=== PATIENT | female | born 1990 | race Hispanic/Latino ===

== ENCOUNTER 2021-10-07 10:00 | Inpatient (IN) | payer MEDICAID, OTHER ==
[~2021-10-07] VITALS: Ht 170.2 cm; Wt 62.1 kg
[2021-10-07] MEDS ORDERED: ACETAMINOPHEN 500 MG TABLET ONE (10:39)
[2021-10-07 10:41] LABS: APPEARANCE,URINE Cloudy (CLEAR); BILIRUBIN,URINE Negative (NEGATIVE); COLOR,URINE Orange (YELLOW); GLUCOSE, URINE (UA) Negative (NEGATIVE); HEMATOCRIT 26.1 % (36-48); KETONES,URINE 15 mg/dL (NEGATIVE); LEUKOCYTE ESTERASE ,URINE Small (NEGATIVE); MEAN CORPUSCULAR HEMOGLOBIN 21.4 pg (27.0-33.0); MEAN CORPUSCULAR HGB CONC 31.4 g/dL (32.0-36.0); NITRATE,URINE Negative (NEGATIVE); OCCULT BLOOD,URINE Large (NEGATIVE); PLATELET COUNT (AUTO) 107 K/uL (130-400); PROTEIN,URINE POS 2+ mg/dL (NEGATIVE); RED BLOOD CELL COUNT(AUTO) 3.84 MIL/uL (4.00-5.50); RED CELL DISTRIBUTION WIDTH 15.4 % (11.0-15.5); WHITE BLOOD COUNT (AUTO) 6.4 K/uL (4.8-10.8)
[2021-10-07 10:44] LABS: HCG,QUAL RESULT NEGATIVE (NEGATIVE)
[2021-10-07 10:47] LABS: CREATININE 0.9 mg/dL (0.5-1.5); POTASSIUM 3.7 mmol/L (3.5-5.1)
[2021-10-07 10:52] LABS: ALBUMIN 2.9 g/dL (3.5-5.0); BILIRUBIN,TOTAL 0.3 mg/dL (0.2-1.0); TOTAL PROTEIN, SERUM 7.2 g/dL (6.0-8.3)
[2021-10-07] MEDS ORDERED: 0.9%NACL 1000ML 1,779 ML IV ONE (11:00)
[2021-10-07] MEDS ORDERED: ACETAMINOPHEN 500 MG TABLET PO ONE (11:00)
[2021-10-07 11:15] LABS: CRP QUANTITATIVE 200.5 mg/L (0.00-9.0)
[2021-10-07 11:17] LABS: BACTERIA,URINE Few /HPF (None Seen); RBC,URINE TNTC /HPF (0-1)
[2021-10-07] MEDS ORDERED: ACETAMINOPHEN 325 MG TAB PO PRN (11:30)
[2021-10-07] MEDS ORDERED: LEVOFLOXACIN 750 MG/D5W 150 ML 150 ML IV ONE (11:30)
[2021-10-07 11:52] LABS: BAND NEUTROPHILS % (MANUAL) 14 % (0-2); BASOPHILS % (MANUAL) 2 % (0-2); LYMPHOCYTES % (MANUAL) 21 % (22-44); MAN.DIFF COMMENT-IMPRESSION MANUAL DIFFERENTIAL; MONOCYTES % (MANUAL) 7 % (2-9); PLATELET MORPHOLOGY COMMENT ADEQUATE; SEGMENTED NEUTROPHILS % 56 % (40-70)
[2021-10-07] MEDS ORDERED: IBUPROFEN 800 MG TAB ONE (12:06)
[2021-10-07] MEDS: IBUPROFEN 800 MG TAB PO SCH (12:10)
[2021-10-07] MEDS: 0.9%NACL 1000ML 1,000 ML IV SCH ×2 (12:11→23:45)
[2021-10-07] MEDS: ONDANSETRON 4MG INJ IV PRN ×2 (12:23→19:52)
[2021-10-07] MEDS ORDERED: DOXYCYCLINE 100MG IVPB (VIAL) IVPB SCH (14:30)
[2021-10-07] MEDS ORDERED: 0.9% NACL 250ML IVPB SCH (14:30)
[2021-10-07] MEDS: DOXYCYCLINE 100MG+NS 250ML 250 ML IV SCH (14:58)
[2021-10-07 15:37] LABS: POTASSIUM 3.7 mmol/L (3.5-5.1)
[2021-10-07 15:38] LABS: CREATININE 0.9 mg/dL (0.5-1.5)
[2021-10-07 16:30] VITALS: BP 91/59
[2021-10-07 19:20] VITALS: BP 97/54
[2021-10-07] MEDS: FAMOTIDINE 20MG VIAL IV SCH (19:52)
[2021-10-07] MEDS: ACETAMINOPHEN 325 MG TAB PO PRN (20:52)
[2021-10-07 23:27] VITALS: BP 94/54
[2021-10-08] MEDS: DOXYCYCLINE 100MG+NS 250ML 250 ML IV SCH ×2 (01:56→13:18)
[2021-10-08 03:26] VITALS: BP 98/46
[2021-10-08] MEDS: ACETAMINOPHEN 325 MG TAB PO PRN ×3 (03:30→22:28)
[2021-10-08 04:08] LABS: % IRON SATURATION 3.5 % (22-44)
[2021-10-08 04:12] LABS: CREATININE 0.7 mg/dL (0.5-1.5); POTASSIUM 3.9 mmol/L (3.5-5.1)
[2021-10-08 04:14] LABS: HEMATOCRIT 22.4 % (36-48); MEAN CORPUSCULAR HEMOGLOBIN 21.7 pg (27.0-33.0); MEAN CORPUSCULAR HGB CONC 31.3 g/dL (32.0-36.0); MEAN CORPUSCULAR VOLUME 69.3 fL (79-99); PLATELET COUNT (AUTO) 101 K/uL (130-400); RED BLOOD CELL COUNT(AUTO) 3.23 MIL/uL (4.00-5.50); WHITE BLOOD COUNT (AUTO) 4.6 K/uL (4.8-10.8)
[2021-10-08 04:46] LABS: CRP QUANTITATIVE 190.9 mg/L (0.00-9.0)
[2021-10-08 06:00] LABS: BASOPHILS % (AUTO) 0.4 % (0.0-5.0); EOSINOPHILS % (AUTO) 0.2 % (0.0-8.0); LYMPHOCYTES % (AUTO) 24.4 % (21.0-51.0); MONOCYTES % (AUTO) 8.8 % (3.0-13.0); NEUTROPHILS % (AUTO) 65.8 % (40.0-77.0)
[2021-10-08 06:10] LABS: ALBUMIN 2.3 g/dL (3.5-5.0); BILIRUBIN,DIRECT 0.1 mg/dL (0.0-0.3); BILIRUBIN,TOTAL 0.2 mg/dL (0.2-1.0); TOTAL PROTEIN, SERUM 6.2 g/dL (6.0-8.3)
[2021-10-08 08:00] VITALS: BP 92/53
[2021-10-08] MEDS: FAMOTIDINE 20MG VIAL IV SCH ×2 (08:06→20:18)
[2021-10-08] MEDS: LEVOFLOXACIN 500 MG/D5W 100 ML 100 ML IV SCH (08:07)
[2021-10-08] MEDS ORDERED: COMPOUND IV MISC 1 EACH IVSOLN MISC PRN (09:00)
[2021-10-08] MEDS ORDERED: ENOXAPARIN SODIUM 40 MG/0.4 ML SYRINGE SQ SCH (09:00)
[2021-10-08] MEDS: IBUPROFEN 800 MG TAB PO SCH (10:46)
[2021-10-08] MEDS: IRON SUCROSE COMPLEX 100 MG in 0.9%NACL 50ML 50 ML IV SCH (11:40)
[2021-10-08 11:53] VITALS: BP 101/59
[2021-10-08] MEDS: 0.9%NACL 1000ML 1,000 ML IV SCH (12:47)
[2021-10-08 13:12] LABS: HEMATOCRIT 23.7 % (36-48)
[2021-10-08 16:00] VITALS: BP 94/50
[2021-10-08 19:08] VITALS: BP 101/58
[2021-10-08 23:19] VITALS: BP 104/46
[2021-10-09] MEDS: 0.9%NACL 1000ML 1,000 ML IV SCH (01:45)
[2021-10-09] MEDS: DOXYCYCLINE 100MG+NS 250ML 250 ML IV SCH (02:16)
[2021-10-09 03:49] LABS: HEMATOCRIT 22.9 % (36-48); MEAN CORPUSCULAR HEMOGLOBIN 21.3 pg (27.0-33.0); MEAN CORPUSCULAR VOLUME 68.6 fL (79-99); RED BLOOD CELL COUNT(AUTO) 3.34 MIL/uL (4.00-5.50); RED CELL DISTRIBUTION WIDTH 16.2 % (11.0-15.5); WHITE BLOOD COUNT (AUTO) 6.1 K/uL (4.8-10.8)
[2021-10-09 04:05] VITALS: BP 96/44
[2021-10-09 04:08] LABS: CREATININE 0.7 mg/dL (0.5-1.5); POTASSIUM 3.6 mmol/L (3.5-5.1)
[2021-10-09 08:18] VITALS: BP 104/63
[2021-10-09] MEDS: LEVOFLOXACIN 500 MG/D5W 100 ML 100 ML IV SCH (10:43)
[2021-10-09] MEDS: IRON SUCROSE COMPLEX 100 MG in 0.9%NACL 50ML 50 ML IV SCH (10:43)
[2021-10-09] MEDS: FAMOTIDINE 20MG VIAL IV SCH ×2 (10:43→20:42)
[2021-10-09] MEDS: IBUPROFEN 800 MG TAB PO SCH (10:55)
[2021-10-09 11:59] VITALS: BP 103/60
[2021-10-09 17:08] VITALS: BP 114/62
[2021-10-09 20:25] VITALS: BP 103/56
[2021-10-09] MEDS: DOXYCYCLINE HYCLATE 100 MG TABLET PO SCH (20:43)
[2021-10-10 00:13] VITALS: BP 113/70
[2021-10-10 03:47] VITALS: BP 99/52
[2021-10-10 04:11] LABS: CREATININE 0.6 mg/dL (0.5-1.5); POTASSIUM 3.6 mmol/L (3.5-5.1)
[2021-10-10 04:56] LABS: HEMATOCRIT 22.9 % (36-48); MEAN CORPUSCULAR HEMOGLOBIN 21.2 pg (27.0-33.0); MEAN CORPUSCULAR VOLUME 68.4 fL (79-99); NUCLEATED RED BLOOD CELLS 0.2 % (0.0-0.19); RED BLOOD CELL COUNT(AUTO) 3.35 MIL/uL (4.00-5.50); RED CELL DISTRIBUTION WIDTH 16.4 % (11.0-15.5); WHITE BLOOD COUNT (AUTO) 8.8 K/uL (4.8-10.8)
[2021-10-10 06:07] LABS: ALANINE AMINOTRANSFERASE 59 U/L (12-78); ALBUMIN 2.4 g/dL (3.5-5.0); ASPARTATE AMINOTRANSFERASE 42 U/L (10-37); BILIRUBIN,DIRECT < 0.1 mg/dL (0.0-0.3); BILIRUBIN,TOTAL 0.2 mg/dL (0.2-1.0); TOTAL PROTEIN, SERUM 6.3 g/dL (6.0-8.3)
[2021-10-10] MEDS: IRON SUCROSE COMPLEX 500 MG in 0.9%NACL 50ML 50 ML IV SCH ×2 (07:00→09:18)
[2021-10-10] MEDS ORDERED: EPOETIN ALFA-EPBX (NON-ESRD) 10,000 UNIT/ML VIAL SQ SCH (07:00)
[2021-10-10 08:00] VITALS: BP 107/65
[2021-10-10] MEDS: FAMOTIDINE 20MG VIAL IV SCH (09:06)
[2021-10-10] MEDS: DOXYCYCLINE HYCLATE 100 MG TABLET PO SCH (09:08)
[2021-10-10 11:30] VITALS: BP 100/67
[2021-10-10] MEDS: IBUPROFEN 800 MG TAB PO SCH (12:30)
[2021-10-10] MEDS ORDERED: DOXY100T2 PO (16:32)
== END 2021-10-10 19:50 | disposition home or self-care (01) | DRG 872 ==
LOC: EDH 10:00 → OBSVTOIN 10:01 → INTOOBSV 10:01 → EDHIP 10:01 → 4AH 14:22
PROVIDERS: ADMIT Internal Medicine; ATTEND Internal Medicine
DX: A41.9 Sepsis, unspecified organism (principal); E44.0 Moderate protein-calorie malnutrition; E87.1 Hypo-osmolality and hyponatremia; N12 Tubulo-interstitial nephritis, not specified as acute or chronic; B17.9 Acute viral hepatitis, unspecified; A79.9 Rickettsiosis, unspecified; D69.6 Thrombocytopenia, unspecified; N92.0 Excessive and frequent menstruation with regular cycle; D50.9 Iron deficiency anemia, unspecified; E86.0 Dehydration; E86.1 Hypovolemia; K80.20 Calculus of gallbladder without cholecystitis without obstruction; Z20.822 Contact with and (suspected) exposure to COVID-19; I95.9 Hypotension, unspecified; Z68.21 Body mass index [BMI] 21.0-21.9, adult; Z79.899 Other long term (current) drug therapy
CPT/HCPCS: 36415; 71045; 74176; 76705; 76856; 80048; 80053; 80074; 80076; 81001; 81025; 82607; 82728; 82746; 83540; 83550; 83605; 84145; 85014; 85018; 85025; 85027; 86140; 86757; 86850; 86900; 86901; 87040; 87088; 87635; 87804; 93005; 93971; 99291; G0378; J1650; J1756; J1956; J2405; J3490; J7030

== ENCOUNTER 2023-11-02 08:28 | Emergency (ER) | payer MEDICAID, OTHER ==
[~2023-11-02] VITALS: Ht 170.2 cm; Wt 65.8 kg
[~2023-11-02 08:28] MED LIST: DOXY100T2 PO
[2023-11-02 08:59] LABS: APPEARANCE,URINE CLOUDY (CLEAR); BILIRUBIN,URINE NEGATIVE (NEGATIVE); COLOR,URINE YELLOW (YELLOW); GLUCOSE, URINE (UA) NEGATIVE (NEGATIVE); HCG,QUALITATIVE URINE NEGATIVE (NEGATIVE); KETONES,URINE NEGATIVE (NEGATIVE); LEUKOCYTE ESTERASE ,URINE 75 Leu/uL (NEGATIVE); NITRATE,URINE NEGATIVE (NEGATIVE); OCCULT BLOOD,URINE LARGE (NEGATIVE); PH,URINE 5.5 (5.0-8.0); PROTEIN,URINE 30 mg/dL (NEGATIVE); UROBILINOGEN,URINE 0.2 mg/dL (0.2-1.0)
[2023-11-02 09:00] LABS: ADD UA MICROSCOPIC YES
[2023-11-02 09:21] LABS: BACTERIA,URINE RARE /HPF (None Seen); MUCUS,URINE MANY LPF (None Seen); OTHER CASTS, URINE 2 /LPF (None Seen); SQUAMOUS EPITHELIAL CELL,UR MOD /HPF (0-2); WBC,URINE 26-50 /HPF (0-1)
[2023-11-02 10:02] LABS: BASOPHILS # (AUTO) 0.06 K/uL (0.00-0.20); BASOPHILS % (AUTO) 0.8 % (0.0-5.0); EOSINOPHILS # (AUTO) 0.21 K/uL (0.00-0.70); EOSINOPHILS % (AUTO) 2.6 % (0.0-8.0); HEMATOCRIT 40.1 % (36-48); IMMATURE GRANULOCYTE ABSOLUTE 0.02 K/uL (0-1); LYMPHOCYTES # (AUTO) 2.1 K/uL (1.0-4.8); LYMPHOCYTES % (AUTO) 26.9 % (21.0-51.0); MEAN CORPUSCULAR HEMOGLOBIN 28.5 pg (27.0-33.0); MEAN CORPUSCULAR HGB CONC 32.7 g/dL (32.0-36.0); MEAN CORPUSCULAR VOLUME 87.4 fL (79-99); MONOCYTES # (AUTO) 0.5 K/uL (0.1-1.0); MONOCYTES % (AUTO) 6.1 % (3.0-13.0); NEUTROPHILS % (AUTO) 63.3 % (40.0-77.0); PLATELET COUNT (AUTO) 254 K/uL (130-400); RED BLOOD CELL COUNT(AUTO) 4.59 MIL/uL (4.00-5.50); RED CELL DISTRIBUTION WIDTH 14.9 % (11.0-15.5); WHITE BLOOD COUNT (AUTO) 7.9 K/uL (4.8-10.8)
[2023-11-02 10:19] LABS: BILIRUBIN,TOTAL 0.2 mg/dL (0.2-1.0); CREATININE 0.6 mg/dL (0.5-1.5); TOTAL PROTEIN, SERUM 8.1 g/dL (6.0-8.3)
[2023-11-02 14:08] VITALS: BP 119/73; PULSE 63; RESP 18; O2SAT 100
[2023-11-02] MEDS ORDERED: DOXY-469 PO (16:23)
[2023-11-02] MEDS ORDERED: METR-172 PO (16:23)
[2023-11-02] MEDS ORDERED: AZITHROMYCIN 250 MG TABLET PO ONE (16:30)
== END 2023-11-02 16:44 | disposition home or self-care (01) ==
LOC: EDH 08:28
DX: N39.0 Urinary tract infection, site not specified (principal); B96.89 Other specified bacterial agents as the cause of diseases classified elsewhere; N72 Inflammatory disease of cervix uteri; N76.0 Acute vaginitis; Z98.890 Other specified postprocedural states; Z88.0 Allergy status to penicillin
CPT/HCPCS: 36415; 71046; 80053; 81001; 81025; 85025; 87088; 87210; 87486; 87797; 93306

== ENCOUNTER 2024-11-07 20:45 | Emergency (ER) | payer SELFPAY ==
[~2024-11-07] VITALS: Ht 170.2 cm; Wt 69.4 kg
[~2024-11-07 20:45] MED LIST changes: +DOXY100C61 PO; +METR-172 PO
[2024-11-07 20:46] VITALS: TEMP 98.3
--- NOTE | 2024-11-07 20:50 | NUR ---
UA CUP PROVIDED
[2024-11-07] MEDS ORDERED: morPHINE 4 MG SYG IVP ONE (21:00)
--- NOTE | 2024-11-07 21:02 | ERN ---
ED Note History of Present Illness Stated Complaint: BILATERAL FLANK PAIN Chief Complaint: Flank Pain Time Seen by MD: 20:47 Time Seen by Midlevel: 20:47 Dictation: Patient is a 34-year-old female with no significant past medical history who presents to the emergency department with complaints of bilateral flank pain associated with nausea nonbloody vomiting x2 onset a week ago. Patient reports some light pink possible vaginal bleeding after urinating onset today. Denies any burning urination, denies any fevers, Allergies: Coded Allergies: amoxicillin (Unverified Allergy, Unknown, 10/07/21) Home Meds Active Scripts Metronidazole (Metronidazole) 500 Mg Tablet, 500 MG PO BID, #14 TAB 0 Refills Prov:IVONE TAYLOR MD 11/02/23 Doxycycline Monohydrate (Doxycycline Monohydrate) 100 Mg Capsule, 1 CAP PO BID for 7 Days, #14 CAP 0 Refills Prov:IVONE TAYLOR MD 11/02/23 Doxycycline Hyclate (Doxycycline Hyclate) 100 Mg Tablet, 100 MG PO BID for 7 Days, #14 TAB 0 Refills Prov:SANTA DESIR Jr., MD 10/10/21 Past Medical History Past Medical History: UTI Surgical History: Other, BTL Surgical History Other: TUBAL Social History: Negative, Lives with family LMP: Oct 07, 2024 RN Note Reviewed/Agreed w/PFSH: Yes Review of System Dictation Constitutional: Negative for fever,chills, and weight loss Eyes: Negative for injury, pain,redness, and discharge ENT: Negative for injury,pain or swelling Cardiovascular: Negative for chest pain, palpitations, and edema Respiratory: Negative for shortness of breath, cough, and wheezing, Abdomen/GI: Negative for abdominal pain, nausea, vomiting, diarrhea, and constipation Back: Negative for injury and pain : Negative for injury, bleeding and discharge positive for bilateral flank pain, vaginal bleeding MS/Extremity: Negative for injury and deformity Skin: Negative for rash, and discoloration Neuro: Negative for headache, weakness, numbness, tingling, and seizure Psych: Negative for suicide ideation, homicidal ideation, and hallucinations Initial Vital Sign VS Vital Signs Date Time Temp Pulse Resp B/P (MAP) Pulse Ox O2 Delivery O2 Flow Rate FiO2 11/07/24 20:46 98.2 70 16 112/66 100 Room Air Physical Exam Dictation Vital Signs reviewed General Appearance: Alert, oriented x 3, no acute distress, well developed, nourished. Head and Face: non-traumatic. Eyes: PERRL, pink conjunctivas, eyelid no trauma, anterior chamber with arcus senilis. Ears: Pinnas intact and no signs of trauma or erythema ear canals clear and no discharge TM no erythema Nose: No discharge, no bleeding. Oropharynx: Mouth normal, tongue pink. pharynx clear,no erythema, tonsils no exudates, no abscesses noted, mucous membrane moist Neck: Supple, non-tender, no thyromegaly, no masses, no JVD, no bruits Breast:Deferred Chest:No tenderness, no crepitus, no paradoxical movement, no retractions Lungs:Clear, well-ventilated, symmetric, no rales, no wheezing, no rhonchi, no stridor, good breath sounds bilaterally Heart: Regular rate, regular rhythm, no murmur, no gallops Vascular: no peripheral edema, Abdomen: Soft, positive bowel sounds, nondistended, no guarding, nontender, no rebound, no masses no hepatomegaly, no splenomegaly, no Chauhan's sign, no hernias. Rectal: Deferred Genital: Deferred Neurological: Normal speech, motor function intact, sensory function intact Musculoskeletal: Neck nontender, full range of motion, back nontender, full range of motion, Extremities: nontender, full range of motion Skin: Color pink, dry, no turgor, no rash, no lacerations, no abrasions, no contusions. Lymphatic: Deferred Results (Laboratory/Radiology) Laboratory/Radiology Laboratory Tests Test 11/07/24 21:08 11/07/24 21:10 Urine Color LIGHT-YELLOW (YELLOW) Urine Appearance CLEAR (CLEAR) Urine pH 7.0 (5.0-8.0) Urine Specific [place] 1.012 (1.001-1.031) Urine Protein NEGATIVE mg/dL (NEGATIVE) Urine Glucose (UA) NEGATIVE mg/dL (NEGATIVE) Urine Ketones NEGATIVE mg/dL (NEGATIVE) Urine Occult Blood LARGE (NEGATIVE) H Urine Nitrate NEGATIVE (NEGATIVE) Urine Bilirubin NEGATIVE mg/dL (NEGATIVE) Urine Urobilinogen 0.2 mg/dL (0.2-1.0) Urine Leukocyte Esterase 75 Jv/uL (NEGATIVE) H Urine RBC 51-100 /HPF (0-1) H Urine WBC 11-25 /HPF (0-1) H Urine Squamous Epithelial Cells MOD /HPF (0-2) Urine Bacteria RARE /HPF (None Seen) Urine HCG, Qualitative NEGATIVE (NEGATIVE) White Blood Count 10.8 K/uL (4.8-10.8) Red Blood Count 4.23 MIL/uL (4.00-5.50) Hemoglobin 12.4 g/dL (12.0-16.0) Hematocrit 38.0 % (36-48) Mean Corpuscular Volume 89.8 fL (79-99) Mean Corpuscular Hemoglobin 29.3 pg (27.0-33.0) Mean Corpuscular Hemoglobin Concent 32.6 g/dL (32.0-36.0) Red Cell Distribution Width 13.0 % (11.0-15.5) Platelet Count 268 K/uL (130-400) Mean Platelet Volume 10.6 fL (7.5-10.5) H Immature Granulocyte % (Auto) 0.2 % (0-1) Neutrophils (%) (Auto) 58.7 % (40.0-77.0) Lymphocytes (%) (Auto) 28.3 % (21.0-51.0) Monocytes (%) (Auto) 9.4 % (3.0-13.0) Eosinophils (%) (Auto) 2.8 % (0.0-8.0) Basophils (%) (Auto) 0.6 % (0.0-5.0) Neutrophils # (Auto) 6.4 K/uL (1.8-7.7) Lymphocytes # (Auto) 3.1 K/uL (1.0-4.8) Monocytes # (Auto) 1.0 K/uL (0.1-1.0) Eosinophils # (Auto) 0.30 K/uL (0.00-0.70) Basophils # (Auto) 0.06 K/uL (0.00-0.20) Absolute Immature Granulocyte (auto 0.02 K/uL (0-1) Nucleated Red Blood Cells 0.0 % (0.0-0.19) Sodium Level 139 mmol/L (136-145) Potassium Level 3.9 mmol/L (3.5-5.1) Chloride Level 104 mmol/L (101-111) Carbon Dioxide Level 28 mmol/L (21-32) Blood Urea Nitrogen 9 mg/dL (7-18) Creatinine 0.7 mg/dL (0.5-1.0) Glomerular Filtration Rate Calc 118 mL/min (>90) Random Glucose 113 mg/dL (70-105) H Total Calcium 8.8 mg/dL (8.5-10.1) REASON: R/O KIDNEY STONES ORDERING PHYSICIAN: NOAM GUERRA PROCEDURE: ABD PEL WO - CT ABDOMEN/PELVIS W/O CONTRAST CT ABDOMEN/PELVIS W/O CONTRAST HISTORY: Low back pain COMPARISON: 02/05/2021 TECHNIQUE: Multiple sequential axial images of the abdomen and pelvis were obtained from the dome of the diaphragm through symphysis pubis. Patient was not given contrast through intravenous route. Oral contrast was not given. FINDINGS: No pleural effusion is seen bilaterally. There is no evidence of parenchymal disease or pulmonary nodule of the visualized lower lungs. Degenerative changes of the thoracolumbar spine are present. The heart is not enlarged. There is enlarged measuring 18 cm. Gallbladder is distended. Gastric distention is seen. The liver, spleen, adrenal glands and pancreas are unremarkable. There is no evidence of hydronephrosis bilaterally. No evidence of renal stone is seen. Fecal material is seen in the colon. There are normal size retroperitoneal and mesenteric lymph nodes. No ascites is seen. Appendix is not seen limiting evaluation. Clinical correlation is recommended. Uterus is prominent. Pelvic sidewalls are symmetric bilaterally. Bladder is well distended without wall thickening. IMPRESSION: 1. No hydronephrosis is seen of either kidney. Large amount of fecal material is seen in the colon. No ascites is seen. CT was performed with one or more following dose reduction techniques: automated exposure control, adjustment of the mA and kv according to patient's size, or use of a iterative reconstruction technique. Labs Reviewed?: Yes ED Course ED Course Orders Procedure Category Date Status Time Cbc With Differential LAB 11/07/24 Complete 20:56 ,Urine Test LAB 11/07/24 Complete 20:56 Urinalysis Profile LAB 11/07/24 Complete 20:56 0.9%Nacl 1000ml (Ns PHA 11/07/24 Complete 1000ml) 21:00 Morphine 4mg Syg PHA 11/07/24 Complete (Morphine 4mg Syg) 21:00 Ondansetron 4mg Inj PHA 11/07/24 Complete (Zofran 4mg Inj) 21:00 Basic Metabolic Panel LAB 11/07/24 Complete 20:56 Culture Urine JAVIER 11/07/24 In Process 21:27 Ct Abdomen/Pelvis W/O CT 11/07/24 Resulted Contrast 21:32 Ceftriaxone 1g Vial PHA 11/07/24 Complete (Rocephine 1g Inj) 22:30 Lactulose 20 Gm/30 Ml PHA 11/07/24 In Process Udcup (Constulose 23:00 Ketorolac PHA 11/07/24 In Process Tromethamine 30mg/Ml 23:00 Current Medications Medications (Trade) Dose Ordered Sig/Mack Route PRN Reason Start Time Stop Time Status Last Admin Dose Admin Ceftriaxone Sodium (ROCEphine 1G INJ) 1 gm ONCE ONCE IVPB 11/07/24 22:30 11/07/24 22:31 DC Ketorolac Tromethamine (toRADol) 30 mg ONCE ONCE IVP 11/07/24 23:00 11/07/24 23:01 Lactulose (Constulose 20gm/ 30ml Udcup) 20 gm ONCE ONCE PO 11/07/24 23:00 11/07/24 23:01 Morphine Sulfate (morPHINE 4MG SYG) 4 mg ONCE ONCE IVP 11/07/24 21:00 11/07/24 22:47 DC Ondansetron HCl (zoFRAN 4MG INJ) 4 mg ONCE ONCE IVP 11/07/24 21:00 11/07/24 21:01 DC Sodium Chloride 1,000 ml @ 0 mls/hr ONCE ONCE IV 11/07/24 21:00 11/07/24 21:01 DC Vital Signs Date Time Temp Pulse Resp B/P (MAP) Pulse Ox O2 Delivery O2 Flow Rate FiO2 11/07/24 20:46 98.2 70 16 112/66 100 Room Air Medical Decision Making MDM Patient is a 34-year-old female with no significant past medical history who presents to the emergency department with complaints of bilateral flank pain associated with nausea nonbloody vomiting x2 onset a week ago. Patient reports some light pink possible vaginal bleeding after urinating onset today. Denies any burning urination, denies any fevers, CBC showed no leukocytosis, no anemia, chemistry showed no electrolyte imbalance, urinalysis positive for leukocyte esterase, patient treated with antibiotics. CT abdomen showed no renal stones. Some constipation. Patient denies any abdominal pain. Nontender abdomen. No CVA tenderness. Patient will be discharged to follow up with PCP. Differential diagnosis: UTI, kidney stones, muscle strain, electrolyte imbalance Need for hospitalization: Patient does not meet criteria for hospitalization. There are no social concerns with this patient. DX & DISP Disposition: Discharge Departure Impression: Primary Impression: UTI (urinary tract infection) Additional Impressions: Flank pain, Constipation, Nausea and vomiting Condition: Stable Scripts Ondansetron (Ondansetron Odt) 4 Mg Tab.rapdis 4 MG PO Q6HPRN PRN for nausea, #16 TAB 0 Refills Prov: NOAM GUERRA 11/07/24 Lactulose (Lactulose) 10 Gram/15 Ml Solution 30 ML PO DAILY for constipation, #900 ML 0 Refills Prov: NOAM GUERRA 11/07/24 Nitrofurantoin Monohyd/M-Cryst (Macrobid 100 mg Capsule) 100 Mg Capsule 1 CAP PO BID for 5 Days, #10 CAP 0 Refills Prov: NOAM GUERRA 11/07/24 Additional Instructions: Please follow up with your primary doctor in 1-2 days. If symptoms worsen please return to ER. FOLLOW-UP WITH PRIMARY CARE PROVIDER IN 1 TO 2 DAYS. TAKE MEDICATIONS DIRECTED HERE IN THE EMERGENCY ROOM. OKAY TO CONTINUE HOME MEDICATIONS UNLESS OTHERWISE DISCUSSED DURING YOUR VISIT IN THE EMERGENCY ROOM TODAY. RETURN TO YOUR NEAREST EMERGENCY ROOM IF SYMPTOMS WORSEN OR IF THERE IS NO IMPROVEMENT. CALL 911 IF YOU NEED IMMEDIATE ASSISTANCE. TAKE TYLENOL OR MOTRIN [id number] NEEDED AND IF NO CONTRAINDICATIONS ARE PRESENT. INCREASE ORAL HYDRATION. A WOUND CULTURE OR URINE CULTURE WAS ORDERED HERE IN THE EMERGENCY ROOM DEPARTMENT PLEASE FOLLOW-UP WITH PRIMARY CARE PROVIDER AND ADVISE THEM TO GET REPEAT PORTS FROM OUR FACILITY. IF YOU HAD ANY VANE WRAP/SPLINTS THAT WERE APPLIED HERE, PLEASE DO NOT REMOVE THEM UNTIL YOU SEE YOUR PRIMARY CARE OR SPECIALTY. Referrals: SELF,REFERRAL (PCP) Time of Disposition: 22:52 I have reviewed the case, and I agree with, Diagnosis and Plan NOAM GUERRA Nov 07, 2024 21:02
[2024-11-07 21:17] LABS: BASOPHILS # (AUTO) 0.06 K/uL (0.00-0.20); BASOPHILS % (AUTO) 0.6 % (0.0-5.0); EOSINOPHILS % (AUTO) 2.8 % (0.0-8.0); IMMATURE GRANULOCYTE ABSOLUTE 0.02 K/uL (0-1); LYMPHOCYTES # (AUTO) 3.1 K/uL (1.0-4.8); LYMPHOCYTES % (AUTO) 28.3 % (21.0-51.0); MEAN CORPUSCULAR HEMOGLOBIN 29.3 pg (27.0-33.0); MEAN CORPUSCULAR HGB CONC 32.6 g/dL (32.0-36.0); MEAN CORPUSCULAR VOLUME 89.8 fL (79-99); MONOCYTES % (AUTO) 9.4 % (3.0-13.0); NEUTROPHILS # (AUTO) 6.4 K/uL (1.8-7.7); NEUTROPHILS % (AUTO) 58.7 % (40.0-77.0); PLATELET COUNT (AUTO) 268 K/uL (130-400); RED BLOOD CELL COUNT(AUTO) 4.23 MIL/uL (4.00-5.50); WHITE BLOOD COUNT (AUTO) 10.8 K/uL (4.8-10.8)
[2024-11-07 21:25] LABS: APPEARANCE,URINE CLEAR (CLEAR); BILIRUBIN,URINE NEGATIVE (NEGATIVE); COLOR,URINE LIGHT-YELLOW (YELLOW); GLUCOSE, URINE (UA) NEGATIVE (NEGATIVE); KETONES,URINE NEGATIVE (NEGATIVE); LEUKOCYTE ESTERASE ,URINE 75 Leu/uL (NEGATIVE); NITRATE,URINE NEGATIVE (NEGATIVE); OCCULT BLOOD,URINE LARGE (NEGATIVE); PROTEIN,URINE NEGATIVE (NEGATIVE); UROBILINOGEN,URINE 0.2 mg/dL (0.2-1.0)
[2024-11-07 21:27] LABS: ADD UA MICROSCOPIC YES
[2024-11-07 21:28] LABS: HCG,QUALITATIVE URINE NEGATIVE (NEGATIVE)
[2024-11-07 21:28] LABS: CREATININE 0.7 mg/dL (0.5-1.0); POTASSIUM 3.9 mmol/L (3.5-5.1)
[2024-11-07 21:31] LABS: BACTERIA,URINE RARE /HPF (None Seen); MUCUS,URINE RARE LPF (None Seen); RBC,URINE 51-100 /HPF (0-1); SQUAMOUS EPITHELIAL CELL,UR MOD /HPF (0-2)
--- NOTE | 2024-11-07 22:28 | HMCIMG ---
CT ABDOMEN/PELVIS W/O CONTRAST HISTORY: Low back pain COMPARISON: 02/05/2021 TECHNIQUE: Multiple sequential axial images of the abdomen and pelvis were obtained from the dome of the diaphragm through symphysis pubis. Patient was not given contrast through intravenous route. Oral contrast was not given. FINDINGS: No pleural effusion is seen bilaterally. There is no evidence of parenchymal disease or pulmonary nodule of the visualized lower lungs. Degenerative changes of the thoracolumbar spine are present. The heart is not enlarged. There is enlarged measuring 18 cm. Gallbladder is distended. Gastric distention is seen. The liver, spleen, adrenal glands and pancreas are unremarkable. There is no evidence of hydronephrosis bilaterally. No evidence of renal stone is seen. Fecal material is seen in the colon. There are normal size retroperitoneal and mesenteric lymph nodes. No ascites is seen. Appendix is not seen limiting evaluation. Clinical correlation is recommended. Uterus is prominent. Pelvic sidewalls are symmetric bilaterally. Bladder is well distended without wall thickening. IMPRESSION: 1. No hydronephrosis is seen of either kidney. Large amount of fecal material is seen in the colon. No ascites is seen. CT was performed with one or more following dose reduction techniques: automated exposure control, adjustment of the mA and kv according to patient's size, or use of a iterative reconstruction technique.
[2024-11-07] MEDS ORDERED: LACT-441 PO (22:53)
[2024-11-07] MEDS ORDERED: ONDA-243 PO (22:53)
[2024-11-07] MEDS ORDERED: NITR100C4 PO (22:53)
--- NOTE | 2024-11-07 23:00 | NUR ---
PT NOT DISCHARGED DUE TO PENDING IV MEDICATIONS
[2024-11-08] MEDS: ketOROlac 30MG VIAL (30MG/ML) IVP ONE (00:02)
[2024-11-08] MEDS: cefTRIAXone 1G VIAL IVPB ONE (00:02)
[2024-11-08] MEDS: ondanSETRON 4MG INJ IVP ONE (00:02)
[2024-11-08] MEDS: 0.9%NACL 1000ML 1,000 ML IV ONE (00:02)
[2024-11-08] MEDS: LACTULOSE 20 GM/30 ML UDCUP PO ONE (00:02)
[2024-11-08 01:13] VITALS: BP 103/51; PULSE 64; RESP 18; O2SAT 97
== END 2024-11-08 01:18 | disposition home or self-care (01) ==
LOC: EDH 20:45
DX: N39.0 Urinary tract infection, site not specified (principal); R10.9 Unspecified abdominal pain; K59.00 Constipation, unspecified; R11.2 Nausea with vomiting, unspecified; Z88.0 Allergy status to penicillin; Z98.51 Tubal ligation status
CPT/HCPCS: 99285; 74176; 80048; 85025; 87086; 81001; 81025; 36415; 96365; 96375; J1885; J7030; J0696; J2405; 96361

== ENCOUNTER 2024-11-16 21:21 | Emergency (ER) | payer SELFPAY ==
[~2024-11-16] VITALS: Ht 170.2 cm; Wt 68.0 kg
[~2024-11-16 21:21] MED LIST changes: +LACT-441 PO; +NITR100C4 PO; +ONDA-243 PO
--- NOTE | 2024-11-16 21:42 | ERN ---
ED Note History of Present Illness Stated Complaint: CANT BREATH, FEELS LIKE THROAT CLOSING Chief Complaint: Multiple Complaints Time Seen by MD: 21:37 Dictation: This is a 34-year-old female who presented to the emergency room stating that she has a sensation of throat closing for the past 2 days. She was apparently seen in the local ER and were concerned about a possible stroke or a herniated disc and she had extensive imaging studies including MRI which apparently was negative. She had multiple somatic complaints including palpitations numbness from right ear to right arm. NIH 0 She was complaining of can not breathe, sensation of throat closing up she also complained of palpitations numbness vague symptoms. Temperature 97.8 pulse 104 respirations 20 blood pressure 127/69 with a pulse oximetry of 100% Allergies: Coded Allergies: amoxicillin (Unverified Allergy, Unknown, 10/07/21) Home Meds Active Scripts Nitrofurantoin Monohyd/M-Cryst (Macrobid 100 mg Capsule) 100 Mg Capsule, 1 CAP PO BID for 5 Days, #10 CAP 0 Refills Prov:UCHE GALEANO MD 11/17/24 Ondansetron (Ondansetron Odt) 4 Mg Tab.rapdis, 4 MG PO Q6HPRN PRN for nausea, #16 TAB 0 Refills Prov:NOAM GUERRA [facility] 11/07/24 Lactulose (Lactulose) 10 Gram/15 Ml Solution, 30 ML PO DAILY for constipation, #900 ML 0 Refills Prov:NOAM GUERRA [facility] 11/07/24 Nitrofurantoin Monohyd/M-Cryst (Macrobid 100 mg Capsule) 100 Mg Capsule, 1 CAP PO BID for 5 Days, #10 CAP 0 Refills Prov:NOAM GU[facility]RA [facility] 11/07/24 Metronidazole (Metronidazole) 500 Mg Tablet, 500 MG PO BID, #14 TAB 0 Refills Prov:IVONE TAYLOR MD 11/02/23 Doxycycline Monohydrate (Doxycycline Monohydrate) 100 Mg Capsule, 1 CAP PO BID for 7 Days, #14 CAP 0 Refills Prov:IVONE TAYLOR MD 11/02/23 Doxycycline Hyclate (Doxycycline Hyclate) 100 Mg Tablet, 100 MG PO BID for 7 Days, #14 TAB 0 Refills Prov:SANTA DESIR Jr., MD 10/10/21 Past Medical History Past Medical History: No Pertinent History, UTI Surgical History: Other, BTL Surgical History Other: TUBAL Social History: Drugs (History of cannabis use before), Negative, Lives with family RN Note Reviewed/Agreed w/PFSH: Yes Review of System Dictation Constitutional: Negative for fever,chills, and weight loss Eyes: Negative for injury, pain,redness, and discharge ENT: Negative for injury,pain or swelling positive for globus feeling, postnasal drip Cardiovascular: Negative for chest pain, palpitations, and edema Respiratory: Negative for shortness of breath, cough, and wheezing, Abdomen/GI: Negative for abdominal pain, nausea, vomiting, diarrhea, and constipation Back: Negative for injury and pain : Negative for injury, bleeding and discharge MS/Extremity: Negative for injury and deformity Skin: Negative for rash, and discoloration Neuro: Negative for headache, weakness, numbness, tingling, and seizure Psych: Negative for suicide ideation, homicidal ideation, and hallucinations Initial Vital Sign VS Vital Signs Date Time Temp Pulse Resp B/P (MAP) Pulse Ox O2 Delivery O2 Flow Rate FiO2 11/16/24 21:22 97.9 104 20 127/69 100 Room Air 11/16/24 22:23 0 21 Physical Exam Dictation General: awake, alert, NAD initially was not cooperative with flat affect but later spoke fluently with no stridor or respiratory distress. Head/Face: Normocephalic, atraumatic Eyes: PERRL, EOMI, vision at baseline ENT: oral cavity clear, TMs clear, no signs of infection Neck: Trachea midline, supple, no nuchal rigidity Cardiovascular: RRR, normal S1/S2, No MRGs, no JVD Respiratory: CTAB, no respiratory distress, No rales or wheezes Abdomen: Soft, non-tender, non-distended, normal bowel sounds, no guarding or rebound. Skin: Warm, dry, normal turgor, no rash MS/Extremity: Pulses equal, no cyanosis, neurovascular intact, FROM Neuro: COAx4, GCS 15, strength 5/5, CN 2-12 intact, normal cerebellar exam, normal gait, Psych: Normal behavior, mood, and affect normal Extremities-trace edema without any palpable cords, Homans sign is negative Results (Laboratory/Radiology) Laboratory/Radiology Laboratory Tests Test 11/16/24 22:00 11/16/24 22:20 11/16/24 22:21 11/16/24 23:53 White Blood Count 11.4 K/uL (4.8-10.8) H Red Blood Count 4.33 MIL/uL (4.00-5.50) Hemoglobin 12.8 g/dL (12.0-16.0) Hematocrit 38.9 % (36-48) Mean Corpuscular Volume 89.8 fL (79-99) Mean Corpuscular Hemoglobin 29.6 pg (27.0-33.0) Mean Corpuscular Hemoglobin Concent 32.9 g/dL (32.0-36.0) Red Cell Distribution Width 12.8 % (11.0-15.5) Platelet Count 278 K/uL (130-400) Mean Platelet Volume 11.4 fL (7.5-10.5) H Immature Granulocyte % (Auto) 0.4 % (0-1) Neutrophils (%) (Auto) 61.2 % (40.0-77.0) Lymphocytes (%) (Auto) 29.0 % (21.0-51.0) Monocytes (%) (Auto) 7.0 % (3.0-13.0) Eosinophils (%) (Auto) 1.9 % (0.0-8.0) Basophils (%) (Auto) 0.5 % (0.0-5.0) Neutrophils # (Auto) 7.0 K/uL (1.8-7.7) Lymphocytes # (Auto) 3.3 K/uL (1.0-4.8) Monocytes # (Auto) 0.8 K/uL (0.1-1.0) Eosinophils # (Auto) 0.22 K/uL (0.00-0.70) Basophils # (Auto) 0.06 K/uL (0.00-0.20) Absolute Immature Granulocyte (auto 0.04 K/uL (0-1) Nucleated Red Blood Cells 0.0 % (0.0-0.19) Sodium Level 139 mmol/L (136-145) Potassium Level 3.7 mmol/L (3.5-5.1) Chloride Level 105 mmol/L (101-111) Carbon Dioxide Level 28 mmol/L (21-32) Blood Urea Nitrogen 6 mg/dL (7-18) L Creatinine 0.7 mg/dL (0.5-1.0) Glomerular Filtration Rate Calc 118 mL/min (>90) Random Glucose 131 mg/dL (70-105) H Total Calcium 8.6 mg/dL (8.5-10.1) Total Creatine Kinase 66 U/L (21-232) Troponin I High Sensitivity < 4 ng/L (4-50) L B-Type Natriuretic Peptide 14 pg/mL (0-100) Urine Color COLORLESS (YELLOW) Urine Appearance CLOUDY (CLEAR) H Urine pH 6.0 (5.0-8.0) Urine Specific [place] 1.006 (1.001-1.031) Urine Protein NEGATIVE mg/dL (NEGATIVE) Urine Glucose (UA) NEGATIVE mg/dL (NEGATIVE) Urine Ketones NEGATIVE mg/dL (NEGATIVE) Urine Occult Blood NEGATIVE (NEGATIVE) Urine Nitrate NEGATIVE (NEGATIVE) Urine Bilirubin NEGATIVE mg/dL (NEGATIVE) Urine Urobilinogen 0.2 mg/dL (0.2-1.0) Urine Leukocyte Esterase 250 Jv/uL (NEGATIVE) H Urine RBC 2-5 /HPF (0-1) H Urine WBC 6-10 /HPF (0-1) H Urine Squamous Epithelial Cells FEW /HPF (0-2) Urine Bacteria RARE /HPF (None Seen) Urine Opiates Screen NEGATIVE (NEGATIVE) Urine Barbiturates Screen NEGATIVE (NEGATIVE) Urine Phencyclidine Screen NEGATIVE (NEGATIVE) Urine Amphetamines Screen NEGATIVE (NEGATIVE) Urine Benzodiazepines Screen NEGATIVE (NEGATIVE) Urine Cocaine Screen NEGATIVE (NEGATIVE) Urine Marijuana (THC) Screen NEGATIVE (NEGATIVE) Troponin I < 0.05 ng/mL (0.00-0.05) Blood Gas Specimen Type Arterial Arterial Blood pH 7.411 (7.350-7.450) Arterial Blood Partial Pressure CO2 38 mmHg (32-45) Arterial Blood Partial Pressure O2 96.5 mmHg (83.0-108.0) Arterial Blood HCO3 23.7 mmol/L (21.0-28.0) Arterial Blood Oxygen Saturation 97.4 % (94.0-98.0) Arterial Blood Base Excess -0.6 mmol/L (-2.0-3.0) Blood Gas Temperature 37.0 CELSIUS (35.5-37.0) Blood Gas Vent Mode ROOMAIR (ROOM AIR) FiO2 21.0 % Blood Gas Specimen Comment RB DR.THOPU Labs Reviewed?: Yes ED Course ED Course Orders Procedure Category Date Status Time Vital Signs Per CPOE 11/16/24 Transmitted Routine 21:29 B-Type Natriuretic LAB 11/16/24 Complete Peptide 21:29 Chest 1vw RAD 11/16/24 Resulted 21:29 12 Lead Ekg Tracing- EKG 11/16/24 Resulted Technical 21:29 Oxygen By Nc/Pulse Ox CPOE 11/16/24 Transmitted 21:29 Maintain Iv CPOE 11/16/24 Transmitted 21:29 Iv Insertion CPOE 11/16/24 Transmitted 21:29 Cardiac Monitoring CPOE 11/16/24 Transmitted 21:29 Pulse Oximetry With CPOE 11/16/24 Transmitted Vs And Prn 21:29 Cbc With Differential LAB 11/16/24 Complete 21:29 Activity: Br W/Brp CPOE 11/16/24 Transmitted With Assist 21:29 Creatine Kinase, Total LAB 11/16/24 Complete 21:29 Troponin I High LAB 11/16/24 Complete Sensitivity 21:29 Urinalysis Profile LAB 11/16/24 Complete 21:29 Troponin Poc Order LAB 11/16/24 Complete Only 21:29 Bedside Troponin-I LAB.ER 11/16/24 Complete (Poc) 21:29 Basic Metabolic Panel LAB 11/16/24 Complete 21:29 Drug Screen Urine LAB 11/16/24 Complete 21:29 Culture Urine JAVIER 11/16/24 Complete 22:34 Arterial Blood Gas RT 11/16/24 Transmitted 23:22 0.9% Nacl 500ml PHA 11/16/24 Complete Iv.Soln (Ns 500ml 23:30 Lorazepam 2 Mg PHA 11/17/24 Complete (Ativan) 00:00 Levofloxacin 500 PHA 11/16/24 Complete Mg/D5w 100 Ml 23:45 Edm Admit Bridge Order ADM 11/16/24 Transmitted 23:38 Arterial Blood Gas LAB 11/16/24 Complete 23:53 Ketorolac PHA 11/17/24 Complete Tromethamine 15mg/Ml 00:30 Current Medications Medications (Trade) Dose Ordered Sig/Mack Route PRN Reason Start Time Stop Time Status Last Admin Dose Admin Ketorolac Tromethamine (toRADol) 15 mg ONCE ONCE IV 11/17/24 00:30 11/17/24 00:31 DC 11/17/24 00:29 Levofloxacin/ Dextrose (LEvaquIN 500 MG/ D5W 100 ML) 750 mg ONCE ONCE IV 11/16/24 23:45 11/16/24 23:46 DC 11/16/24 23:48 Lorazepam (AtiVAN) 0.5 mg ONCE ONCE IVP 11/17/24 00:00 11/17/24 00:01 DC 11/16/24 23:49 Sodium Chloride 500 ml @ 0 mls/hr ONCE ONCE IV 11/16/24 23:30 11/16/24 23:31 DC 11/16/24 23:48 Vital Signs Date Time Temp Pulse Resp B/P (MAP) Pulse Ox O2 Delivery O2 Flow Rate FiO2 11/17/24 00:48 67 18 101/62 100 Room Air* 0 21 11/16/24 22:23 98.1 89 30 125/76 99 Room Air* 0 21 11/16/24 21:22 97.9 104 20 127/69 100 Room Air We will perform diagnostic labs, advanced imaging and administer medications according to the patient's complaint. Once the results are available, will review and personally interpreted the labs to rule out any acute life- threatening emergency the trach require immediate intervention and treatment. I will then re-evaluate the patient after treatment and diagnostic exams have return to determine whether the patient requires any further testing, can safely be discharged home or need further admission to hospital for additional treatment and evaluation. Labs reviewed CBC showed a white count of 11.4 hemoglobin 12.8. Chest x-ray unremarkable for any infiltrate urinalysis was abnormal positive leuko esterase with WBCs. 11/03/2023 she had an echocardiogram that was essentially normal and CT scan of the abdomen 11/07/2024 showed constipation She responded very well to fluids mild anxiolytic and antibiotics and was discharged to home with outpatient antibiotic therapy HEART Score Response (Comments) Value History: Low suspicion (0) 0 EKG: Normal 0 Age: < 45yrs (0) 0 Risk Factors: No known risk factors (0) 0 Initial Troponin: Normal limit (0) 0 HEART Score Risk: Low Risk for MACE (1-3) Total 0 Medical Decision Making MDM MDM: Differential diagnosis: Pharyngitis, laryngitis, gastroesophageal reflux, tonsillitis Rationale: Tests considered and ordered secondary to shared decision making include: Previous outside records reviewed: Old ER visits. Risk of complication and/or morbidity or mortality of patient management: None Medications-Per medication reconciliation Need for hospitalization: Patient does not meet criteria for hospitalization. Need for emergency major/minor surgery: No There are no social concerns with this patient. Prescription drug management Prescriptions will include symptomatic care Patient's prior external medical records from other ER visits were reviewed by me as indicated. Prior testing and results from previous visits were reviewed. Prior tests were taken into account with medical decision making and resource utilization, independent historian/historians were used to obtain complete medical history. I independently interpreted the test that were performed, results were reviewed by me and considered findings on radiology if ordered. Medical management and examination interpretation discussions were had by me with other qualified healthcare professionals as indicated for the patient's care. Problem List Problem List: (1) Chest wall pain (2) UTI (urinary tract infection) DX & DISP Disposition: Discharge Departure Impression: Primary Impression: UTI (urinary tract infection) Additional Impression: Chest wall pain Condition: Stable Scripts Nitrofurantoin Monohyd/M-Cryst (Macrobid 100 mg Capsule) 100 Mg Capsule 1 CAP PO BID for 5 Days, #10 CAP 0 Refills Prov: UCHE GALEANO MD 11/17/24 Additional Instructions: Patient and the caregiver have been informed of all the diagnostic tests and the imaging conducted during the today's visit to the emergency room and has verbalized understanding of the results I have personally reviewed and interpreted all diagnostic exams performed here in the ER today as well as the vital signs documented by the nursing staff. The patient is now being d ischarged to home and should follow up with the primary care physician or the specialist as directed by the ER staff. Follow-up with primary care provider in 1 to 2 days. Take medications as directed here in the emergency room. Okay to continue home medications unless otherwise discussed during your visit in the emergency room today. Return to your nearest emergency room if symptoms worsen or if there is no improvement. Call 911 if you need immediate assistance. Take Tylenol or Motrin [id number] as needed and if no contraindications are present. Increase oral hydration. A wound culture or urine culture was ordered here in the emergency room department please follow-up with primary care provider and advise them to get repeat ports from our facility. If you had any Sameer wrap/splints that were applied here, please do not remove them until you see your primary care or specialty. Referrals: SELF,REFERRAL (PCP) UCHE GALEANO MD Nov 16, 2024 21:42
[2024-11-16 22:23] VITALS: TEMP 98.1
[2024-11-16 22:25] LABS: BASOPHILS # (AUTO) 0.06 K/uL (0.00-0.20); BASOPHILS % (AUTO) 0.5 % (0.0-5.0); EOSINOPHILS # (AUTO) 0.22 K/uL (0.00-0.70); EOSINOPHILS % (AUTO) 1.9 % (0.0-8.0); HEMATOCRIT 38.9 % (36-48); IMMATURE GRANULOCYTE ABSOLUTE 0.04 K/uL (0-1); LYMPHOCYTES # (AUTO) 3.3 K/uL (1.0-4.8); MEAN CORPUSCULAR HEMOGLOBIN 29.6 pg (27.0-33.0); MEAN CORPUSCULAR HGB CONC 32.9 g/dL (32.0-36.0); MEAN CORPUSCULAR VOLUME 89.8 fL (79-99); MONOCYTES # (AUTO) 0.8 K/uL (0.1-1.0); NEUTROPHILS % (AUTO) 61.2 % (40.0-77.0); PLATELET COUNT (AUTO) 278 K/uL (130-400); RED BLOOD CELL COUNT(AUTO) 4.33 MIL/uL (4.00-5.50); RED CELL DISTRIBUTION WIDTH 12.8 % (11.0-15.5); WHITE BLOOD COUNT (AUTO) 11.4 K/uL (4.8-10.8)
[2024-11-16 22:27] LABS: APPEARANCE,URINE CLOUDY (CLEAR); BILIRUBIN,URINE NEGATIVE (NEGATIVE); COLOR,URINE COLORLESS (YELLOW); GLUCOSE, URINE (UA) NEGATIVE (NEGATIVE); KETONES,URINE NEGATIVE (NEGATIVE); LEUKOCYTE ESTERASE ,URINE 250 Leu/uL (NEGATIVE); NITRATE,URINE NEGATIVE (NEGATIVE); OCCULT BLOOD,URINE NEGATIVE (NEGATIVE); PROTEIN,URINE NEGATIVE (NEGATIVE); UROBILINOGEN,URINE 0.2 mg/dL (0.2-1.0)
[2024-11-16 22:33] LABS: AMPHET/METH SCREEN,URINE NEGATIVE (NEGATIVE); BARBITURATE SCREEN, URINE NEGATIVE (NEGATIVE); BENZODIAZEPINES SCREEN,URINE NEGATIVE (NEGATIVE); CANNABINOID SCREEN,URINE NEGATIVE (NEGATIVE); COCAINE SCREEN,URINE NEGATIVE (NEGATIVE); OPIATE SCREEN,URINE NEGATIVE (NEGATIVE); PHENCYCLIDINE SCREEN,URINE NEGATIVE (NEGATIVE)
[2024-11-16 22:34] LABS: ADD UA MICROSCOPIC YES
[2024-11-16 22:36] LABS: BACTERIA,URINE RARE /HPF (None Seen); MUCUS,URINE RARE LPF (None Seen); SQUAMOUS EPITHELIAL CELL,UR FEW /HPF (0-2)
[2024-11-16 22:37] LABS: CREATININE 0.7 mg/dL (0.5-1.0); POTASSIUM 3.7 mmol/L (3.5-5.1)
[2024-11-16 23:03] LABS: B-TYPE NATRIURETIC PEPTIDE 14 pg/mL (0-100)
[2024-11-16] MEDS: 0.9% NACL 500ML IV.SOLN 500 ML IV ONE (23:48)
[2024-11-16] MEDS: levoFLOXacin 500 MG/D5W 100 ML IV ONE (23:48)
[2024-11-16] MEDS: LORazepam 2 MG/ML 1 ML VIAL IVP ONE (23:49)
[2024-11-16 23:54] LABS: ABG BASE EXCESS -0.6 mmol/L (-2.0-3.0); ABG HCO3 23.7 mmol/L (21.0-28.0); ABG OXYGEN SATURATION 97.4 % (94.0-98.0); ABG PCO2 38 mmHg (32-45); ABG PH 7.411 (7.350-7.450); PO2, ARTERIAL BG 96.5 mmHg (83.0-108.0); VENT MODE, BG ROOMAIR (ROOM AIR)
[2024-11-17] MEDS ORDERED: NITR100C4 PO (00:06)
[2024-11-17] MEDS: ketOROlac 15MG/ML VIAL (15MG/ML) IV ONE (00:29)
[2024-11-17 00:48] VITALS: BP 101/62; PULSE 67; RESP 18; O2SAT 100
--- NOTE | 2024-11-17 05:31 | EKG ---
[facility] Test Date: 2024-11-16 Test Time: 21:27:14 Pat Name: MAGALIS MONTES Department: ED Room: Gender: F Signal Person: [id number] : 1990 Requested By: UCHE GALEANO Order Number: [id number] Reading MD: Navjot Lombardo Measurements Intervals [place] Rate: 92 P: 68 HI: 134 QRS: 83 QRSD: 100 T: 28 QT: 358 QTc: 445 Interpretive Statements Sinus rhythm Compared to ECG 10/07/2021 10:46:26 Sinus tachycardia no longer present Electronically Signed On 11-17-2024 18:23:00 PREVENTIVE MEDICINE PHYSICIAN by Navjot Lombardo Please click the below link to view image of tracing.
--- NOTE | 2024-11-17 09:35 | HMCIMG ---
Exam Type: CHEST 1VW Clinical Information: CHEST PAIN Comparison: None Findings: The lungs are clear of infiltrates. The heart is normal in size. The bony and soft tissue structures of the chest are unremarkable. Impression: Clear lungs.
== END 2024-11-17 01:48 | disposition home or self-care (01) ==
LOC: EDH 21:21
DX: N39.0 Urinary tract infection, site not specified (principal); R07.89 Other chest pain; R20.0 Anesthesia of skin; R20.2 Paresthesia of skin; Z88.0 Allergy status to penicillin; Z98.51 Tubal ligation status; Z79.899 Other long term (current) drug therapy
CPT/HCPCS: 99285; 96365; 71045; 96375 ×2; 82550; 84484 ×2; 80048; 82803; 83880; 80305; 85025; 87086; 81001; 36415; 93005; 36600; J7040; J1956; J2060; J1885